=== PATIENT | female | born 1985 | race Hispanic/Latino ===

== ENCOUNTER 2018-05-08 21:22 | Inpatient (IN) | payer OTHER, SELFPAY ==
[2018-05-08] MEDS: LACTATED RINGER'S 1000 ML IV (23:10)
[2018-05-08] MEDS ORDERED: LR 1,000 ML IV (23:10)
[2018-05-08] MEDS: BUTORPHANOL 2 MG/ML INJ (J0595) IV (23:30)
[2018-05-08] MEDS: PROMETHAZINE INJ 25 MG/ML VIAL (J2550) IV (23:30)
[2018-05-08 23:47] LABS: HEMATOCRIT 38.9 % (36.0-47.0); HEMOGLOBIN 13.4 g/dl (12.0-15.5); MEAN CORPUSCULAR HEMOGLOBIN 29.3 pg (27.0-33.0); MEAN CORPUSCULAR HGB CONC 34.4 g/dl (32.0-36.5); MEAN CORPUSCULAR VOLUME 85.1 fl (80.0-96.0); PLATELET COUNT, AUTOMATED 164 10^3/uL (150-450); RED BLOOD COUNT 4.57 10^6/uL (4.00-5.40); RED CELL DISTRIBUTION WIDTH 13.7 % (11.5-14.5); WHITE BLOOD COUNT 8.3 10^3/uL (4.0-10.0)
[2018-05-09 00:12] LABS: ALT/SGPT 18 U/L (12-78); AST/SGOT 13 U/L (7-37); BILIRUBIN,TOTAL 0.1 MG/DL (0.2-1.0); CREATININE FOR GFR 0.53 MG/DL (0.55-1.30); GLOMERULAR FILTRATION RATE > 60.0 (>60); LDH LACTATE DEHYDROGENASE 187 U/L (84-246); URIC ACID 5.7 MG/DL (2.6-6.0)
[2018-05-09] MEDS ORDERED: FENTANYL 2MCG/ML ROPIVACAINE 0.2% IN 0.9% NACL 200ML IVBAG As Ordered (01:19)
[2018-05-09] MEDS ORDERED: NALOXONE INJ 0.4 MG/1 ML VIAL (J2310) IV (02:15)
[2018-05-09] MEDS ORDERED: ONDANSETRON 4MG/2ML VIAL (J2405) IV (02:15)
[2018-05-09] MEDS ORDERED: LACTATED RINGER'S 1000 ML IV (02:15)
[2018-05-09] MEDS ORDERED: diphenhydrAMINE INJ 50MG/ML VIAL (J1200) IV (02:15)
[2018-05-09] MEDS ORDERED: EPIDURAL COMMENT XX (02:15)
[2018-05-09] MEDS ORDERED: REFRIGERATOR IV KEYS XX (02:15)
[2018-05-09] MEDS ORDERED: FENTANYL/ROPIVACAINE/NACL BAG 200 ML EPIDURAL (02:15)
[2018-05-09] MEDS ORDERED: ePHEDrine SULFATE 25 MG/5 ML(5MG/ML) SYRINGE IV (02:15)
[2018-05-09] MEDS ORDERED: EPIDURAL/PCA KEYS XX (02:15)
[2018-05-09] MEDS ORDERED: OXYTOCIN DRIP 30 UNITS in APPROPRIATE DILUENT 1 EA IV (03:45)
[2018-05-09] MEDS: OXYTOCIN DRIP 30 UNITS in APPROPRIATE DILUENT 1 EA IV (06:38)
[2018-05-09] MEDS ORDERED: METHYLERGONOVINE MALEATE 0.2 MG TAB PO (06:45)
[2018-05-09] MEDS ORDERED: ANUSOL HC CREAM 30GM TOP (06:45)
[2018-05-09] MEDS ORDERED: IBUPROFEN 800 MG TAB PO (06:45)
[2018-05-09] MEDS ORDERED: DIBUCAINE 1% OINTMENT 30GM TOP (06:45)
[2018-05-09] MEDS ORDERED: MEASLES,MUMPS,RUBELLA VACCINE INJ (MMR-II) (90707) SC (06:45)
[2018-05-09] MEDS ORDERED: DOCUSATE SODIUM 100 MG CAP PO (06:45)
[2018-05-09] MEDS ORDERED: ACETAMINOPHEN 500 MG TAB PO (06:45)
[2018-05-09] MEDS: PRENATAL VITAMINS CHEWABLE TABLET PO (11:42)
[2018-05-10] MEDS: PRENATAL VITAMINS CHEWABLE TABLET PO (09:59)
== END 2018-05-10 16:20 | disposition home or self-care (01) | DRG 775 ==
LOC: M LDO 21:22 → M LDI 05-09 00:15 → M OBS 05-09 09:30
PROC: 10E0XZZ Delivery of Products of Conception, External Approach (ICD-10-PCS; principal; 2018-05-09)
PROC: 0HQ9XZZ Repair Perineum Skin, External Approach (ICD-10-PCS; 2018-05-09)
DX: O34.211 Maternal care for low transverse scar from previous cesarean delivery (principal); Z37.0 Single live birth; Z3A.38 38 weeks gestation of pregnancy; O70.0 First degree perineal laceration during delivery